=== PATIENT | male | born 1955 | race Hispanic/Latino ===

== ENCOUNTER 2024-12-01 07:05 | Emergency (ER) | payer SELFPAY ==
[2024-12-01 07:53] LABS: Glucose, Urine (Dipstick) Negative (Negative); Leukocyte Negative (Negative); Protein, Urine (Dipstick) 100 mg/dL (Neg-Trace); Specific Gravity, Urine 1.020 (1.005-1.030)
[2024-12-01 07:58] LABS: Bacteria/HPF 2+ HPF (None Seen); CAUTI Indications for Culture Dysuria,urgency,freq; WBC/HPF 0-3 HPF (0-3)
[2024-12-01 07:59] LABS: Urine Culture Reflex No No
== END 2024-12-01 08:35 | disposition home or self-care (01) ==
LOC: MADERS 07:05
DX: R33.9 Retention of urine, unspecified (principal)
CPT/HCPCS: 51702; 51798; 81001; 99284

== ENCOUNTER 2024-12-03 06:42 | Emergency (ER) | payer SELFPAY | END 2024-12-03 07:30 | disposition home or self-care (01) | LOC: MADERS 06:42 | DX: T83.011A Breakdown (mechanical) of indwelling urethral catheter, initial encounter (principal); R33.9 Retention of urine, unspecified | CPT/HCPCS: 99283 ==

== ENCOUNTER 2024-12-08 07:03 | Emergency (ER) | payer SELFPAY | END 2024-12-08 08:23 | disposition home or self-care (01) | LOC: MADERS 07:03 | DX: R33.9 Retention of urine, unspecified (principal) | CPT/HCPCS: 99283 ==